=== PATIENT | female | born 1945 | race Caucasian/White ===

== ENCOUNTER → 2019-03-10 | Outpatient (CLI) | payer OTHER, BC ==
[~2019-03-10] VITALS: Ht 160 cm; Wt 88.9 kg
[~2019-03-10] MED LIST: ASPIR 8181 MG PO; ATACAND8 MG PO; CALCIUM 500 +1 EAC5 PO; METFORMIN HCL500 MG PO; MOBIC15 MG PO; NORVASC5 MG PO; OXYBUTYNIN 5 MG5 M2 PO; POTASSIUM CITR10 ME1 PO; SIMVASTATIN40 MG PO; TRAMADOL 50 MG50 MG PO; VESICARE 5 MG TA5 MG PO; ZANTAC 150MG T150 M1 PO; ZESTORETIC 20-1 EAC2 PO
--- NOTE | ~2019-03-10 | P ---
[facility] [place] [address] PROCEDURE REPORT Name: REFUGIOCHAS Arlyn Room #: REG [facility]#: [id number] Admission: 03/10/19 ������������������ Attend Phys: Elijah Aragon Discharge: ������������������ Date of : 41 Report #: [id number] THIS REPORT FOR: //name// CC: Elijah Brunner DATE OF SERVICE: 03/10/2019 PROCEDURE PERFORMED: Colonoscopy with biopsies. HISTORY OF PRESENT ILLNESS: The patient is a 73-year-old female with a history of colon polyps, here for a 5-year followup. She denies any symptoms. No family history of colon cancer. DESCRIPTION OF PROCEDURE: The risks and benefits of the procedure were explained to the patient, those risks including but not limited to bleeding, perforation and the risk of sedation. She understood these risks and gave informed consent. Sedation was given using propofol per Anesthesia. Next, a digital rectal exam was initially performed, which was normal. Next, using a standard Olympus colonoscope, the scope was placed in the patient's anus and advanced under direct vision to the cecum. The overall prep was good. Cecum and ileocecal valve were normal in appearance. In the ascending colon, a 3 mm sessile polyp was noted and removed with cold forceps, otherwise normal. The transverse and descending colon were normal. A few scattered diverticula were noted in the sigmoid colon, no evidence of inflammation, otherwise normal. In the distal rectum, there was another 3 mm sessile polyp also removed with cold forceps. On retroflexion, small nonbleeding internal hemorrhoids were noted. The scope was then withdrawn and the procedure terminated. The patient tolerated the procedure well. IMPRESSION: 1. Two small colonic polyps. 2. Mild sigmoid diverticulosis. 3. Small internal hemorrhoids. 4. Otherwise, normal colonoscopy. RECOMMENDATIONS: 1. Await biopsy results. 2. If polyps are adenomatous, would recommend repeat colonoscopy in 5 years; if hyperplastic, could consider observing due to the patient's age or consider repeat colonoscopy in [address] [address] PROCEDURE REPORT Name: CHAS HUFF Room #: REG [facility]#: [id number] Admission: 03/10/19 ������������������ Attend Phys: Elijah Aragon Discharge: ������������������ Date of : 41 Report #: [id number] Thank you for allowing me to participate in her care. ��������������������������������������������� ���������������������������������������� By: ��������������������������������������������� [id number] Elijah Zhang MD /nt
--- NOTE | 2019-03-13 17:06 | PATH ---
[facility] [address] [place] [address] PATHOLOGY RPT PROCEDURE Name: CHAS HUFF Arlyn Room #: REG [facility].#: [id number] ������������������ Admission: 03/10/19 ������������������ Date of : 41 Discharge: Report #: [id number] Path Case #: [id number] [facility] Accession Number: [id number] . 01 Material submitted: . PART A: colon - POLYP AT ASCENDING COLON. Modifiers: ascending PART B: rectum - POLYP AT RECTUM . 01 Clinical history: . Hx of polyps . 02 Diagnosis: A. Polyp, at ascending colon, endoscopic biopsy: - Tubular adenoma. - Negative for high-grade dysplasia. . B. Polyp, at rectum, endoscopic biopsy: - Hyperplastic polyp. - Negative for dysplasia. (IUV:mirtha; 03/13/2019) QMS/03/13/2019 . 02 Electronically signed: . Candy Duenas MD, Pathologist NPI- [id number] . 01 Gross description: . A. Received in formalin labeled "Brown, Chas, polyp at ascending colon," are 2 segments of ackerman soft tissue measuring 0.7 x 0.3 x 0.2 cm in aggregate dimensions and ranging from 0.3 to 0.4 cm in maximum dimension. The specimen is submitted entirely in cassette A1. . B. Received in formalin labeled "Brown, Chas, polyp at rectum," is a single segment of ackerman soft tissue measuring 0.3 cm in maximum dimension. The specimen is entirely submitted in cassette B1. (TSD; 03/10/2019) TOB/TOB . 02 Pathologist provided ICD-10: D12.2, K62.1 . 02 CPT . 625756, 760028 Specimen Comment: A courtesy copy of this report has been sent to Specimen Comment: [phone], . Specimen Comment: Report sent to / DR VELASQUEZ Performed at: [address] [place] [address] PATHOLOGY RPT PROCEDURE Name: CHAS HUFF Room #: REG [facility] [place].#: [id number] ������������������ Admission: 03/10/19 ������������������ Date of : 41 Discharge: Report #: [id number] Path Case #: [id number] [facility] Jurgen Fernandez [address] [place] [address] [address], [place], [place] [id number] MD Harlan Rodriguez MD Phone: [phone] Performed at: [address] [id number] MD Candy Duenas MD Phone: [phone]
== END | disposition home or self-care (01) ==
LOC: GI 06:56
DX: Z12.11 Encounter for screening for malignant neoplasm of colon (principal); Z86.010 Personal history of colon polyps; D12.2 Benign neoplasm of ascending colon; K62.1 Rectal polyp; K57.30 Diverticulosis of large intestine without perforation or abscess without bleeding; K64.8 Other hemorrhoids; I10 Essential (primary) hypertension; E78.5 Hyperlipidemia, unspecified; J45.909 Unspecified asthma, uncomplicated; D64.9 Anemia, unspecified; K21.9 Gastro-esophageal reflux disease without esophagitis; E11.9 Type 2 diabetes mellitus without complications; Z98.890 Other specified postprocedural states; Z85.828 Personal history of other malignant neoplasm of skin; Z98.51 Tubal ligation status; Z88.8 Allergy status to other drugs, medicaments and biological substances; Z79.82 Long term (current) use of aspirin; Z79.899 Other long term (current) drug therapy
CPT/HCPCS: 62110; 62900